=== PATIENT | female | born 1980 | race American Indian/Alaskan Native ===

== ENCOUNTER 2022-02-14 13:04 | Inpatient (IN) | payer SELFPAY ==
[2022-02-14] MEDS ORDERED: SODIUM CHLORIDE 0.9% 1000 ML 1,000 ML IV ONE (14:31)
[2022-02-14 15:04] LABS: Basophils # (Auto) 0.1 K/mm3 (0.0-0.1); Basophils % (Auto) 1.1 % (0.0-1.8); Eosinophils % (Auto) 0.7 % (0.0-4.3); Hematocrit 36.5 % (30.3-42.9); Hemoglobin 12.2 gm/dl (10.1-14.3); Lymphocytes # (Auto) 0.8 K/mm3 (1.2-5.4); Lymphocytes % (Auto) 15.2 % (13.4-35.0); Mean Corpuscular HGB Conc 34 % (30-34); Mean Corpuscular Volume 78 fl (79-97); Monocytes # (Auto) 0.6 K/mm3 (0.0-0.8); Monocytes % (Auto) 12.3 % (0.0-7.3); Platelet Count 596 K/mm3 (140-440); Red Blood Count 4.65 M/mm3 (3.65-5.03); Red Cell Distribution Width 13.5 % (13.2-15.2)
[2022-02-14 15:23] LABS: Alanine Aminotransferase 17 units/L (7-56); Albumin 4.1 g/dL (3.9-5); Blood Urea Nitrogen 5 mg/dL (7-17); Calcium 9.1 mg/dL (8.4-10.2); Hemolysis Index 13
--- NOTE | 2022-02-14 15:31 | Emergency Department Report ---
HPI - General Chief Complaint: Overdose Time Seen by Provider: 02/14/22 15:13 - HPI HPI: Room 7 The patient is a 41-year-old female present with chief complaint of suicidal ideation/intentional overdose. The patient states sometime last night after 23 00 hrs. she intentionally overdosed on approximately 20 Tylenol PM (500 mg each) and approximately 10 lisinopril 20 mg. Patient denies any other ingestions. When asked how long she is felt suicidal patient replies "I do not know." Patient denies any other attempts at harming herself ED Past Medical Hx - Past Medical History Hx Hypertension: Yes Additional medical history: Polycystic ovarian syndrome, Burrell's palsy - Surgical History Additional Surgical History: x2, ovarian tumor removal (benign), bladder tumor removal (benign), breast biopsy (benign), bilateral tubal ligation - Family History Family history: no significant - Social History Smoking Status: Never Smoker Substance Use Type: None (Denies illicit drug use) ED Review of Systems ROS: Stated complaint: SUICIDE ATTEMPT Other details as noted in HPI Constitutional: no symptoms reported Eyes: denies: eye pain ENT: denies: throat pain Respiratory: no symptoms reported Cardiovascular: denies: chest pain Endocrine: no symptoms reported Gastrointestinal: denies: abdominal pain Musculoskeletal: denies: back pain Neurological: denies: headache Physical Exam - Physical Exam Vital Signs: Vital Signs 02/14/22 02/14/22 02/14/22 13:08 13:34 13:46 Temperature 98.6 F Pulse Rate 119 H 100 H 107 H Respiratory 14 21 23 Rate Blood Pressure Blood Pressure 136/103 [Left] O2 Sat by Pulse 99 97 98 Oximetry 02/14/22 02/14/22 02/14/22 13:59 14:00 14:16 Temperature 98.2 F Pulse Rate 100 H 130 H Respiratory 24 25 H 21 Rate Blood Pressure 182/106 Blood Pressure 167/102 [Left] O2 Sat by Pulse 99 99 99 Oximetry 02/14/22 02/14/22 02/14/22 14:30 14:46 15:00 Temperature Pulse Rate 129 H Respiratory 22 25 H 26 H Rate Blood Pressure 186/115 177/107 173/103 Blood Pressure 173/103 [Left] O2 Sat by Pulse 99 99 99 Oximetry Physical Exam: GENERAL: The patient is well-developed well-nourished female lying on stretcher not appearing to be in acute distress. [] HEENT: Normocephalic. Atraumatic. Extraocular motions are intact. Patient has moist mucous membranes. NECK: Supple. Trachea midline CHEST/LUNGS: Clear to auscultation. There is no respiratory distress noted. HEART/CARDIOVASCULAR: Regular. There is tachycardia. There is no gallop rub or murmur. ABDOMEN: Abdomen is soft, nontender. Patient has normal bowel sounds. There is no abdominal distention. SKIN: There is no rash. There is no edema. There is no diaphoresis. NEURO: The patient is awake, alert, and oriented. The patient is cooperative. The patient has no focal neurologic deficits. The patient has normal speech. GCS 15 MUSCULOSKELETAL: There is no evidence of acute injury. ED Course Vital Signs 02/14/22 02/14/22 02/14/22 13:08 13:34 13:46 Temperature 98.6 F Pulse Rate 119 H 100 H 107 H Respiratory 14 21 23 Rate Blood Pressure Blood Pressure 136/103 [Left] O2 Sat by Pulse 99 97 98 Oximetry 02/14/22 02/14/22 02/14/22 13:59 14:00 14:16 Temperature 98.2 F Pulse Rate 100 H 130 H Respiratory 24 25 H 21 Rate Blood Pressure 182/106 Blood Pressure 167/102 [Left] O2 Sat by Pulse 99 99 99 Oximetry 02/14/22 02/14/22 02/14/22 14:30 14:46 15:00 Temperature Pulse Rate 129 H Respiratory 22 25 H 26 H Rate Blood Pressure 186/115 177/107 173/103 Blood Pressure 173/103 [Left] O2 Sat by Pulse 99 99 99 Oximetry - Consultations Consultation #1: 02/14/22 15:31 Poison control called 02/14/22 15:36 Case discussed with Itzel-she was given updated vitals history and lab results. She states she will discussed with the assistant corporate controller and call back. 02/14/22 16:08 Case discussed with poison control-given uncertain time of ingestion assistant corporate controller recommends initiating therapy with Acetadote. Pharmacist was notified to prepare Acetadote protocol. ED Medical Decision Making - Lab Data Result diagrams: 02/14/22 14:51 02/14/22 14:51 Laboratory Tests 02/14/22 02/14/22 02/14/22 14:51 14:51 14:51 WBC 5.0 RBC 4.65 Hgb 12.2 Hct 36.5 MCV 78 L MCH 26 L MCHC 34 RDW 13.5 Plt Count 596 H Lymph % (Auto) 15.2 [place] % (Auto) 12.3 H Eos % (Auto) 0.7 Baso % (Auto) 1.1 Lymph # (Auto) 0.8 L [place] # (Auto) 0.6 Eos # (Auto) 0.0 Baso # (Auto) 0.1 Seg Neutrophils % 70.7 H Seg Neutrophils # 3.6 Sodium 139 Potassium 3.8 Chloride 104.2 Carbon Dioxide 23 Anion Gap 16 BUN 5 L Creatinine 0.6 Estimated GFR > 60 BUN/Creatinine Ratio 8 Glucose 143 H Calcium 9.1 Total Bilirubin 0.80 AST 13 ALT 17 Alkaline Phosphatase 56 Total Protein 7.3 Albumin 4.1 Albumin/Globulin Ratio 1.3 HCG, Qual Urine Color Urine Turbidity Specific [place] (Man) Ur Protein (Man) Ur Ketones (Man) Urine Bilirubin (Man) Urine WBC (Auto) Urine RBC (Auto) U Epithel Cells (Auto) Urine RBC (Manual) Urine Mucus Salicylates < 0.3 L Urine Opiates Screen Urine Methadone Screen Acetaminophen Ur Barbiturates Screen Ur Phencyclidine Scrn Ur Amphetamines Screen U Benzodiazepines Scrn Urine Cocaine Screen U Marijuana (THC) Screen Drugs of Abuse Note Plasma/Serum Alcohol 02/14/22 02/14/22 02/14/22 14:51 14:51 14:51 WBC RBC Hgb Hct MCV MCH MCHC RDW Plt Count Lymph % (Auto) [place] % (Auto) Eos % (Auto) Baso % (Auto) Lymph # (Auto) [place] # (Auto) Eos # (Auto) Baso # (Auto) Seg Neutrophils % Seg Neutrophils # Sodium Potassium Chloride Carbon Dioxide Anion Gap BUN Creatinine Estimated GFR BUN/Creatinine Ratio Glucose Calcium Total Bilirubin AST ALT Alkaline Phosphatase Total Protein Albumin Albumin/Globulin Ratio HCG, Qual Negative Urine Color Urine Turbidity Specific [place] (Man) Ur Protein (Man) Ur Ketones (Man) Urine Bilirubin (Man) Urine WBC (Auto) Urine RBC (Auto) U Epithel Cells (Auto) Urine RBC (Manual) Urine Mucus Salicylates Urine Opiates Screen Urine Methadone Screen Acetaminophen 11.2 Ur Barbiturates Screen Ur Phencyclidine Scrn Ur Amphetamines Screen U Benzodiazepines Scrn Urine Cocaine Screen U Marijuana (THC) Screen Drugs of Abuse Note Plasma/Serum Alcohol < 0.01 02/14/22 02/14/22 15:11 15:11 WBC RBC Hgb Hct MCV MCH MCHC RDW Plt Count Lymph % (Auto) [place] % (Auto) Eos % (Auto) Baso % (Auto) Lymph # (Auto) [place] # (Auto) Eos # (Auto) Baso # (Auto) Seg Neutrophils % Seg Neutrophils # Sodium Potassium Chloride Carbon Dioxide Anion Gap BUN Creatinine Estimated GFR BUN/Creatinine Ratio Glucose Calcium Total Bilirubin AST ALT Alkaline Phosphatase Total Protein Albumin Albumin/Globulin Ratio HCG, Qual Urine Color Straw Urine Turbidity Clear Specific [place] (Man) 1.015 Ur Protein (Man) 1+ Ur Ketones (Man) Negative Urine Bilirubin (Man) Negative Urine WBC (Auto) 1.0 Urine RBC (Auto) 1.0 U Epithel Cells (Auto) 1.0 Urine RBC (Manual) Negative Urine Mucus Few Salicylates Urine Opiates Screen Negative Urine Methadone Screen Negative Acetaminophen Ur Barbiturates Screen Negative Ur Phencyclidine Scrn Negative Ur Amphetamines Screen Negative U Benzodiazepines Scrn Negative Urine Cocaine Screen Negative U Marijuana (THC) Screen Negative Drugs of Abuse Note Disclamer Plasma/Serum Alcohol - Differential Diagnosis Acetaminophen overdose, anticholinergic syndrome Critical care attestation.: If time is entered above; I have spent that time in minutes in the direct care of this critically ill patient, excluding procedure time. ED Disposition Clinical Impression: Suicidal ideation, Intentional drug overdose, Acetaminophen overdose Disposition: ADMITTED INPATIENT Is pt being admited?: Yes Does the pt Need Aspirin: No Condition: Fair Time of Disposition: 16:08 (Care transferred to hospitalist (Dr. Forrest))
[2022-02-14 15:32] LABS: BUN/Creatinine Ratio 8
[2022-02-14 15:35] LABS: Mucus,Urine FEW /HPF
[2022-02-14 15:43] LABS: Amphetamine Screen,Urine Negative; Benzodiazepines Screen,Urine Negative; Cannabinoid Screen,Urine Negative; Cocaine Screen,Urine Negative; Methadone Screen,Urine Negative; Opiate Screen,Urine Negative
[2022-02-14 15:44] LABS: Color,Urine Straw (Yellow)
[2022-02-14] MEDS ORDERED: MORPHINE 2 MG/1 ML INJ IV PRN (16:10)
[2022-02-14] MEDS ORDERED: ONDANSETRON 4 MG/2 ML INJ IV PRN ×2 (16:10→21:12)
[2022-02-14 16:22] LABS: INR 1.07 (0.87-1.13); Partial Thromboplastin Time 28.9 Sec. (24.2-36.6)
[2022-02-14] MEDS ORDERED: ACETADOTE IV ONE ×3 (17:00→21:30)
[2022-02-14] MEDS ORDERED: DEXTROSE 5% IV ONE ×3 (17:00→21:30)
[2022-02-14] MEDS ORDERED: WATER IV ONE ×3 (17:00→21:30)
[2022-02-14] MEDS ORDERED: METOCLOPRAMIDE 10 MG/2 ML INJ IV PRN (21:12)
[2022-02-14] MEDS ORDERED: oxyCODONE /ACETAMINOPHEN 5-325MG TAB PO PRN (21:12)
[2022-02-14] MEDS ORDERED: ACETAMINOPHEN 325 MG TAB PO PRN (21:12)
[2022-02-14] MEDS: FAMOTIDINE 20 MG/2 ML INJ IV SCH (23:53)
[2022-02-15] MEDS: IBUPROFEN 600 MG TAB PO PRN ×2 (00:54→13:19)
[2022-02-15 05:22] LABS: Basophils # (Auto) 0.1 K/mm3 (0.0-0.1); Basophils % (Auto) 0.8 % (0.0-1.8); Eosinophils # (Auto) 0.2 K/mm3 (0.0-0.4); Hematocrit 33.3 % (30.3-42.9); Hemoglobin 11.2 gm/dl (10.1-14.3); Lymphocytes # (Auto) 1.1 K/mm3 (1.2-5.4); Mean Corpuscular HGB Conc 34 % (30-34); Mean Corpuscular Volume 78 fl (79-97); Monocytes # (Auto) 0.7 K/mm3 (0.0-0.8); Monocytes % (Auto) 10.3 % (0.0-7.3); Platelet Count 533 K/mm3 (140-440); Red Blood Count 4.26 M/mm3 (3.65-5.03); Red Cell Distribution Width 13.7 % (13.2-15.2)
[2022-02-15 05:39] LABS: Alanine Aminotransferase 15 units/L (7-56); Albumin 3.7 g/dL (3.9-5); Blood Urea Nitrogen 5 mg/dL (7-17); Calcium 8.7 mg/dL (8.4-10.2); Hemolysis Index 14
[2022-02-15 05:41] LABS: BUN/Creatinine Ratio 10
--- NOTE | 2022-02-15 07:05 | History and Physical Report ---
History of Present Illness Date of examination: 02/14/22 Date of admission: 02/14/22 16:10 Chief complaint: Tylenol added lisinopril low-dose last night History of present illness: The patient is a 41-year-old female present with chief complaint of suicidal ideation/intentional overdose. The patient states sometime last night after 2300 hrs. she intentionally overdosed on approximately 20 Tylenol PM (500 mg each) and approximately 10 lisinopril 20 mg. Patient denies any other ingestions. When asked how long she is felt suicidal patient replies "I do not know." Patient denies any other attempts at harming herself - Past Medical History --Hypertension: Yes --Additional medical history: Polycystic ovarian syndrome, Burrell's palsy - Surgical History --Additional Surgical History: x2, ovarian tumor removal (benign), bladder tumor removal (benign), breast biopsy (benign), bilateral tubal ligation - Family History --Htn - Social History --Smoking Status: Never Smoker --Substance Use Type: None (Denies illicit drug use) Review of Systems ROS: Stated complaint: SUICIDE ATTEMPT Other details as noted in HPI Constitutional: no symptoms reported Eyes: denies: eye pain ENT: denies: throat pain Respiratory: no symptoms reported Cardiovascular: denies: chest pain Endocrine: no symptoms reported Gastrointestinal: denies: abdominal pain Musculoskeletal: denies: back pain Neurological: denies: headache Medications and Allergies Allergies Allergy/AdvReac Type Severity Reaction Status Date / Time Latex, Natural Rubber Allergy Rash Verified 02/14/22 13:59 Active Meds: Active Medications Famotidine (Famotidine 20 Mg/2 Ml Inj) 20 mg IV BID KATE Last Admin: 02/14/22 23:53 Dose: 20 mg Acetylcysteine 8,390 mg/ (Dextrose) 1,041.95 mls @ 62.5 mls/hr IV ONCE ONE Stop: 02/15/22 14:10 Last Admin: 02/15/22 00:54 Dose: 62.5 mls/hr Dextrose/Sodium Chloride (D5ns) 1,000 mls @ 125 mls/hr IV DIRECT KATE Ibuprofen (Ibuprofen 600 Mg Tab) 600 mg PO Q6H PRN PRN Reason: Pain, Mild (1-3) Last Admin: 02/15/22 00:54 Dose: 600 mg Metoclopramide HCl (Metoclopramide 10 Mg/2 Ml Inj) 10 mg IV Q6H PRN PRN Reason: Nausea And Vomiting Morphine Sulfate (Morphine 2 Mg/1 Ml Inj) 2 mg IV Q4H PRN PRN Reason: Pain, Moderate (4-6) Ondansetron HCl (Ondansetron 4 Mg/2 Ml Inj) 4 mg IV Q8H PRN PRN Reason: Nausea And Vomiting Oxycodone/Acetaminophen (Oxycodone /Acetaminophen 5-325mg Tab) 1 tab PO Q6H PRN PRN Reason: Pain, Moderate (4-6) Sodium Chloride (Sodium Chloride 0.9% 10 Ml Flush Syringe) 10 ml IV BID KATE Last Admin: 02/14/22 23:26 Dose: 10 ml Sodium Chloride (Sodium Chloride 0.9% 10 Ml Flush Syringe) 10 ml IV PRN PRN PRN Reason: LINE FLUSH Last Admin: 02/15/22 00:54 Dose: 10 ml Exam - Constitutional Vitals: Temp Pulse Resp BP Pulse Ox 98.2 F 80 20 138/83 98 02/15/22 04:30 02/15/22 04:30 02/15/22 04:30 02/15/22 04:30 02/15/22 04:30 General appearance: Present: no acute distress, well-nourished - EENT Eyes: Present: PERRL ENT: hearing intact, clear oral mucosa - Neck Neck: Present: supple, normal ROM - Respiratory Respiratory effort: normal Respiratory: bilateral: CTA - Cardiovascular Heart rate: 78 Rhythm: regular Heart Sounds: Present: S1 & S2. Absent: rub, click - Extremities Extremities: pulses symmetrical, No edema Peripheral Pulses: within normal limits - Abdominal General gastrointestinal: Present: soft, non-tender, non-distended, normal bowel sounds Female genitourinary: Present: normal - Integumentary Integumentary: Present: clear, warm, dry - Musculoskeletal Musculoskeletal: gait normal, strength equal bilaterally - Psychiatric Psychiatric: appropriate mood/affect, intact judgment & insight - Neurologic Neurologic: CNII-XII intact, moves all extremities Results - Labs CBC & Chem 7: 02/15/22 04:48 02/15/22 04:48 Labs: Laboratory Last Values WBC 6.6 K/mm3 (4.5-11.0) 02/15/22 04:48 RBC 4.26 M/mm3 (3.65-5.03) 02/15/22 04:48 Hgb 11.2 gm/dl (10.1-14.3) 02/15/22 04:48 Hct 33.3 % (30.3-42.9) 02/15/22 04:48 MCV 78 fl (79-97) L 02/15/22 04:48 MCH 26 pg (28-32) L 02/15/22 04:48 MCHC 34 % (30-34) 02/15/22 04:48 RDW 13.7 % (13.2-15.2) 02/15/22 04:48 Plt Count 533 K/mm3 (140-440) H 02/15/22 04:48 Lymph % (Auto) 17.0 % (13.4-35.0) 02/15/22 04:48 [place] % (Auto) 10.3 % (0.0-7.3) H 02/15/22 04:48 Eos % (Auto) 3.0 % (0.0-4.3) 02/15/22 04:48 Baso % (Auto) 0.8 % (0.0-1.8) 02/15/22 04:48 Lymph # (Auto) 1.1 K/mm3 (1.2-5.4) L 02/15/22 04:48 [place] # (Auto) 0.7 K/mm3 (0.0-0.8) 02/15/22 04:48 Eos # (Auto) 0.2 K/mm3 (0.0-0.4) 02/15/22 04:48 Baso # (Auto) 0.1 K/mm3 (0.0-0.1) 02/15/22 04:48 Seg Neutrophils % 68.9 % (40.0-70.0) 02/15/22 04:48 Seg Neutrophils # 4.5 K/mm3 (1.8-7.7) 02/15/22 04:48 PT 15.1 Sec. (12.2-14.9) H 02/14/22 15:52 INR 1.07 (0.87-1.13) 02/14/22 15:52 APTT 28.9 Sec. (24.2-36.6) 02/14/22 15:52 Sodium 138 mmol/L (137-145) 02/15/22 04:48 Potassium 3.6 mmol/L (3.6-5.0) 02/15/22 04:48 Chloride 105.7 mmol/L (98-107) 02/15/22 04:48 Carbon Dioxide 23 mmol/L (22-30) 02/15/22 04:48 Anion Gap 13 mmol/L 02/15/22 04:48 BUN 5 mg/dL (7-17) L 02/15/22 04:48 Creatinine 0.5 mg/dL (0.6-1.2) L 02/15/22 04:48 Estimated GFR > 60 ml/min 02/15/22 04:48 BUN/Creatinine Ratio 10 % 02/15/22 04:48 Glucose 143 mg/dL (65-100) H 02/15/22 04:48 Calcium 8.7 mg/dL (8.4-10.2) 02/15/22 04:48 Total Bilirubin 2.10 mg/dL (0.1-1.2) H 02/15/22 04:48 AST 12 units/L (5-40) 02/15/22 04:48 ALT 15 units/L (7-56) 02/15/22 04:48 Alkaline Phosphatase 48 units/L (35-129) 02/15/22 04:48 Total Protein 6.6 g/dL (6.3-8.2) 02/15/22 04:48 Albumin 3.7 g/dL (3.9-5) L 02/15/22 04:48 Albumin/Globulin Ratio 1.3 % 02/15/22 04:48 HCG, Qual Negative (Negative) 02/14/22 14:51 Urine Color Straw (Yellow) 02/14/22 15:11 Urine Turbidity Clear (Clear) 02/14/22 15:11 Specific [place] (Man) 1.015 (1.003-1.030) 02/14/22 15:11 Ur Protein (Man) 1+ mg/dL (Negative) 02/14/22 15:11 Ur Ketones (Man) Negative (Negative) 02/14/22 15:11 Urine Bilirubin (Man) Negative (Negative) 02/14/22 15:11 Urine WBC (Auto) 1.0 /HPF (0.0-6.0) 02/14/22 15:11 Urine RBC (Auto) 1.0 /HPF (0.0-6.0) 02/14/22 15:11 U Epithel Cells (Auto) 1.0 /HPF (0-13.0) 02/14/22 15:11 Urine RBC (Manual) Negative (Negative) 02/14/22 15:11 Urine Mucus Few /HPF 02/14/22 15:11 Salicylates < 0.3 mg/dL (2.8-20.0) L 02/14/22 14:51 Urine Opiates Screen Negative 02/14/22 15:11 Urine Methadone Screen Negative 02/14/22 15:11 Acetaminophen 11.2 ug/mL (10.0-30.0) 02/14/22 14:51 Ur Barbiturates Screen Negative 02/14/22 15:11 Ur Phencyclidine Scrn Negative 02/14/22 15:11 Ur Amphetamines Screen Negative 02/14/22 15:11 U Benzodiazepines Scrn Negative 02/14/22 15:11 Urine Cocaine Screen Negative 02/14/22 15:11 U Marijuana (THC) Screen Negative 02/14/22 15:11 Drugs of Abuse Note Disclamer 02/14/22 15:11 Plasma/Serum Alcohol < 0.01 % (0-0.07) 02/14/22 14:51 Short CBC 02/14/22 02/15/22 Range/Units 14:51 04:48 WBC 5.0 6.6 (4.5-11.0) K/mm3 Hgb 12.2 11.2 (10.1-14.3) gm/dl Hct 36.5 33.3 (30.3-42.9) % Plt Count 596 H 533 H (140-440) K/mm3 BMP 02/14/22 02/15/22 14:51 04:48 Sodium 139 138 Potassium 3.8 3.6 Chloride 104.2 105.7 Carbon Dioxide 23 23 BUN 5 L 5 L Creatinine 0.6 0.5 L Glucose 143 H 143 H Calcium 9.1 8.7 Liver Function 02/14/22 02/15/22 Range/Units 14:51 04:48 Total Bilirubin 0.80 2.10 H (0.1-1.2) mg/dL AST 13 12 (5-40) units/L ALT 17 15 (7-56) units/L Alkaline Phosphatase 56 48 (35-129) units/L Albumin 4.1 3.7 L (3.9-5) g/dL Urine 02/14/22 Range/Units 15:11 Urine Color Straw (Yellow) Assessment and Plan Advance Directives: Yes (Full code) VTE prophylaxis?: Chemical Plan of care discussed with patient/family: Yes - Patient Problems (1) Acetaminophen overdose Current Visit: Yes Status: Acute Qualifiers: Encounter type: initial encounter Plan to address problem: Patient is depressed and has suicidal intentions Intentional overdose on Acetaminophen and lisinopril. N- Acetylcysteine protocol started -Poison control was contacted by ER physician LFTs are normal No hepatic injury at this point IV fluids consult mental health consult (2) Intentional drug overdose Current Visit: Yes Status: Acute Qualifiers: Encounter type: initial encounter Qualified Code(s): T50.902A - Poisoning by unspecified drugs, medicaments and biological substances, intentional self- harm, initial encounter Plan to address problem: IV fluids and N-acetylcysteine antidote as per protocol . Pharmacy informed (3) Suicidal ideation Current Visit: Yes Status: Acute Plan to address problem: Mental health and psych consult (4) DVT prophylaxis Current Visit: Yes Status: Acute Plan to address problem: On heparin and GI prophylaxis (5) Advance care planning Current Visit: Yes Status: Acute Plan to address problem: Disease education conducted care plan discussed diagnosis discussed and prognosis discussed. Patient acknowledged understanding with care plan. +30 minutes.
[2022-02-15] MEDS: FAMOTIDINE 20 MG/2 ML INJ IV SCH ×2 (09:46→21:17)
[2022-02-15] MEDS: hydrALAZINE 10 MG TAB PO SCH ×2 (14:28→21:17)
--- NOTE | 2022-02-15 21:17 | Progress Note ---
Assessment and Plan Assessment and plan: Advance Directives: Yes (Full code) VTE prophylaxis?: Chemical Plan of care discussed with patient/family: Yes - Patient Problems --Acetaminophen overdose Patient is depressed and has suicidal intentions Intentional overdose on Acetaminophen and lisinopril. N- Acetylcysteine protocol started -Poison control was contacted by ER physician LFTs are normal No hepatic injury at this point IV fluids consult mental health consult --Intentional drug overdose IV fluids and N-acetylcysteine antidote as per protocol . Pharmacy informed 1013 status --Suicidal attempt Mental health and psych consult --Severe depression; Management per psych/pending evaluation --1013 status/suicidal watch Follow psych eval and recommendations --DVT prophylaxis On heparin and GI prophylaxis --Advance care planning Disease education conducted care plan discussed diagnosis discussed and prognosis discussed. Patient acknowledged understanding with care plan. +30 minutes. 02/15/2022; patient's Tylenol levels within range Patient received 2 doses of N-acetylcysteine Today the level is 11.2[range 10.0-30.0] Patient is 1013 status Pending psych evaluation Closely monitor the patient and adjust the management as needed History Interval history: I have seen and examined the patient at the bedside Patient's chart and medications reviewed Patient was emotional and teary Reports that she was overwhelmed with some issues Alert awake oriented x3 Mild distress Hospitalist Physical - Constitutional Vitals: Temp Pulse Resp BP Pulse Ox 99.4 F 95 H 16 156/89 97 02/15/22 17:52 02/15/22 17:52 02/15/22 17:52 02/15/22 17:52 02/15/22 17:52 General appearance: Present: mild distress, well-nourished, other (Patient is sad and teary) - EENT Eyes: Present: PERRL, EOM intact - Neck Neck: Present: supple, normal ROM - Respiratory Respiratory effort: normal Respiratory: bilateral: diminished, negative: rales, rhonchi, wheezing - Cardiovascular Rhythm: regular Heart Sounds: Present: S1 & S2 - Extremities Extremities: no ischemia, No edema - Abdominal General gastrointestinal: soft, non-tender, non-distended, normal bowel sounds - Integumentary Integumentary: Present: clear, warm - Psychiatric Psychiatric: appropriate mood/affect, cooperative - Neurologic Neurologic: moves all extremities Results - Labs CBC & Chem 7: 02/15/22 04:48 02/15/22 04:48 Labs: Laboratory Last Values WBC 6.6 K/mm3 (4.5-11.0) 02/15/22 04:48 RBC 4.26 M/mm3 (3.65-5.03) 02/15/22 04:48 Hgb 11.2 gm/dl (10.1-14.3) 02/15/22 04:48 Hct 33.3 % (30.3-42.9) 02/15/22 04:48 MCV 78 fl (79-97) L 02/15/22 04:48 MCH 26 pg (28-32) L 02/15/22 04:48 MCHC 34 % (30-34) 02/15/22 04:48 RDW 13.7 % (13.2-15.2) 02/15/22 04:48 Plt Count 533 K/mm3 (140-440) H 02/15/22 04:48 Lymph % (Auto) 17.0 % (13.4-35.0) 02/15/22 04:48 [place] % (Auto) 10.3 % (0.0-7.3) H 02/15/22 04:48 Eos % (Auto) 3.0 % (0.0-4.3) 02/15/22 04:48 Baso % (Auto) 0.8 % (0.0-1.8) 02/15/22 04:48 Lymph # (Auto) 1.1 K/mm3 (1.2-5.4) L 02/15/22 04:48 [place] # (Auto) 0.7 K/mm3 (0.0-0.8) 02/15/22 04:48 Eos # (Auto) 0.2 K/mm3 (0.0-0.4) 02/15/22 04:48 Baso # (Auto) 0.1 K/mm3 (0.0-0.1) 02/15/22 04:48 Seg Neutrophils % 68.9 % (40.0-70.0) 02/15/22 04:48 Seg Neutrophils # 4.5 K/mm3 (1.8-7.7) 02/15/22 04:48 PT 15.1 Sec. (12.2-14.9) H 02/14/22 15:52 INR 1.07 (0.87-1.13) 02/14/22 15:52 APTT 28.9 Sec. (24.2-36.6) 02/14/22 15:52 Sodium 138 mmol/L (137-145) 02/15/22 04:48 Potassium 3.6 mmol/L (3.6-5.0) 02/15/22 04:48 Chloride 105.7 mmol/L (98-107) 02/15/22 04:48 Carbon Dioxide 23 mmol/L (22-30) 02/15/22 04:48 Anion Gap 13 mmol/L 02/15/22 04:48 BUN 5 mg/dL (7-17) L 02/15/22 04:48 Creatinine 0.5 mg/dL (0.6-1.2) L 02/15/22 04:48 Estimated GFR > 60 ml/min 02/15/22 04:48 BUN/Creatinine Ratio 10 % 02/15/22 04:48 Glucose 143 mg/dL (65-100) H 02/15/22 04:48 Calcium 8.7 mg/dL (8.4-10.2) 02/15/22 04:48 Total Bilirubin 2.10 mg/dL (0.1-1.2) H 02/15/22 04:48 AST 12 units/L (5-40) 02/15/22 04:48 ALT 15 units/L (7-56) 02/15/22 04:48 Alkaline Phosphatase 48 units/L (35-129) 02/15/22 04:48 Total Protein 6.6 g/dL (6.3-8.2) 02/15/22 04:48 Albumin 3.7 g/dL (3.9-5) L 02/15/22 04:48 Albumin/Globulin Ratio 1.3 % 02/15/22 04:48 HCG, Qual Negative (Negative) 02/14/22 14:51 Urine Color Straw (Yellow) 02/14/22 15:11 Urine Turbidity Clear (Clear) 02/14/22 15:11 Specific [place] (Man) 1.015 (1.003-1.030) 02/14/22 15:11 Ur Protein (Man) 1+ mg/dL (Negative) 02/14/22 15:11 Ur Ketones (Man) Negative (Negative) 02/14/22 15:11 Urine Bilirubin (Man) Negative (Negative) 02/14/22 15:11 Urine WBC (Auto) 1.0 /HPF (0.0-6.0) 02/14/22 15:11 Urine RBC (Auto) 1.0 /HPF (0.0-6.0) 02/14/22 15:11 U Epithel Cells (Auto) 1.0 /HPF (0-13.0) 02/14/22 15:11 Urine RBC (Manual) Negative (Negative) 02/14/22 15:11 Urine Mucus Few /HPF 02/14/22 15:11 Salicylates < 0.3 mg/dL (2.8-20.0) L 02/14/22 14:51 Urine Opiates Screen Negative 02/14/22 15:11 Urine Methadone Screen Negative 02/14/22 15:11 Acetaminophen 11.2 ug/mL (10.0-30.0) 02/14/22 14:51 Ur Barbiturates Screen Negative 02/14/22 15:11 Ur Phencyclidine Scrn Negative 02/14/22 15:11 Ur Amphetamines Screen Negative 02/14/22 15:11 U Benzodiazepines Scrn Negative 02/14/22 15:11 Urine Cocaine Screen Negative 02/14/22 15:11 U Marijuana (THC) Screen Negative 02/14/22 15:11 Drugs of Abuse Note Disclamer 02/14/22 15:11 Plasma/Serum Alcohol < 0.01 % (0-0.07) 02/14/22 14:51 Flower/IV: Voiding Method Toilet Active Medications - Current Medications Current Medications: Generic Name Dose Route Start Last Admin Trade Name Freq PRN Reason Stop Dose Admin Famotidine 20 mg 02/14/22 22:00 02/15/22 09:46 Famotidine 20 Mg/2 Ml Inj IV 20 mg BID KATE Administration Hydralazine HCl 10 mg 02/15/22 14:00 02/15/22 14:28 Hydralazine 10 Mg Tab PO 10 mg Q8HR KATE Administration Dextrose/Sodium Chloride 1,000 mls @ 125 mls/hr 02/14/22 22:00 D5ns IV DIRECT KATE Ibuprofen 600 mg 02/14/22 16:10 02/15/22 13:19 Ibuprofen 600 Mg Tab PO 600 mg Q6H PRN Administration Pain, Mild (1-3) Metoclopramide HCl 10 mg 02/14/22 21:12 Metoclopramide 10 Mg/2 Ml Inj IV Q6H PRN Nausea And Vomiting Morphine Sulfate 2 mg 02/14/22 16:10 Morphine 2 Mg/1 Ml Inj IV Q4H PRN Pain, Moderate (4-6) Ondansetron HCl 4 mg 02/14/22 16:10 Ondansetron 4 Mg/2 Ml Inj IV Q8H PRN Nausea And Vomiting Sodium Chloride 10 ml 02/14/22 22:00 02/15/22 09:46 Sodium Chloride 0.9% 10 Ml Flush Syringe IV 10 ml BID KATE Administration Sodium Chloride 10 ml 02/14/22 16:10 02/15/22 00:54 Sodium Chloride 0.9% 10 Ml Flush Syringe IV 10 ml PRN PRN Administration LINE FLUSH
[2022-02-16 00:10] LABS: Alanine Aminotransferase 15 units/L (7-56)
[2022-02-16] MEDS: D5W/0.9% NACL 1,000 ML IV SCH ×2 (05:58→14:04)
[2022-02-16] MEDS: IBUPROFEN 600 MG TAB PO PRN (06:06)
[2022-02-16] MEDS: hydrALAZINE 10 MG TAB PO SCH (06:07)
--- NOTE | 2022-02-16 08:11 | Progress Note ---
Assessment and Plan Assessment and plan: Assessment and plan: Advance Directives: Yes (Full code) VTE prophylaxis?: Chemical Plan of care discussed with patient/family: Yes - Patient Problems --Acetaminophen overdose Acetaminophen levels are within range at 11.0 Check level today Patient is depressed and has suicidal intentions Intentional overdose on Acetaminophen and lisinopril. N- Acetylcysteine protocol started -Poison control was contacted by ER physician LFTs are normal No hepatic injury at this point IV fluids consult mental health consult --Intentional drug overdose IV fluids and N-acetylcysteine antidote as per protocol . Pharmacy informed 1013 status --Suicidal attempt Mental health and psych consult --Severe depression; Management per psych/pending evaluation --Low-grade fever; T-max 100 F No evidence of infectious process, WBC normal range Urine analysis negative for UTI Closely monitor --Sinus tachycardia on admission; Improved heart rate today heart rate 95-114 Probably due to low-grade fever, stress related Closely monitor/EKG sinus tachycardia --Hypertension; Metoprolol 12.5 mg p.o. twice daily Hydralazine IV as needed for blood pressure more than 150/90 --1013 status/suicidal watch Follow psych eval and recommendations --DVT prophylaxis On heparin and GI prophylaxis --Advance care planning Disease education conducted care plan discussed diagnosis discussed and prognosis discussed. Patient acknowledged understanding with care plan. +30 minutes. 02/15/2022; patient's Tylenol levels within range Patient received 2 doses of N-acetylcysteine Tylenol level is 11.2[range 10.0-30.0] Patient is 1013 status Pending psych evaluation Closely monitor the patient and adjust the management as needed 02/16; discussed with psych nurse practitioner Pending evaluation, check Tylenol levels, LFTs History Interval history: I have seen and examined the patient at the bedside patient's chart and medications reviewed Patient is feeling better cheerful and smiling Denies any suicidal thoughts or ideation Vital signs noted cyanide pot hardener in the room Hospitalist Physical - Constitutional Vitals: Temp Pulse Resp BP Pulse Ox 100.0 F H 104 H 20 153/78 98 02/16/22 05:41 02/16/22 06:07 02/16/22 05:41 02/16/22 06:07 02/16/22 05:41 General appearance: Present: mild distress, well-nourished, other (Patient is sad and teary) - EENT Eyes: Present: PERRL, EOM intact - Neck Neck: Present: supple, normal ROM - Respiratory Respiratory effort: normal Respiratory: bilateral: diminished, negative: rales, rhonchi, wheezing - Cardiovascular Rhythm: regular Heart Sounds: Present: S1 & S2 - Extremities Extremities: no ischemia, No edema - Abdominal General gastrointestinal: soft, non-tender, non-distended, normal bowel sounds - Integumentary Integumentary: Present: clear, warm - Psychiatric Psychiatric: appropriate mood/affect, cooperative - Neurologic Neurologic: moves all extremities Results - Labs CBC & Chem 7: 02/15/22 04:48 02/16/22 09:40 Labs: Laboratory Last Values WBC 6.6 K/mm3 (4.5-11.0) 02/15/22 04:48 RBC 4.26 M/mm3 (3.65-5.03) 02/15/22 04:48 Hgb 11.2 gm/dl (10.1-14.3) 02/15/22 04:48 Hct 33.3 % (30.3-42.9) 02/15/22 04:48 MCV 78 fl (79-97) L 02/15/22 04:48 MCH 26 pg (28-32) L 02/15/22 04:48 MCHC 34 % (30-34) 02/15/22 04:48 RDW 13.7 % (13.2-15.2) 02/15/22 04:48 Plt Count 533 K/mm3 (140-440) H 02/15/22 04:48 Lymph % (Auto) 17.0 % (13.4-35.0) 02/15/22 04:48 [place] % (Auto) 10.3 % (0.0-7.3) H 02/15/22 04:48 Eos % (Auto) 3.0 % (0.0-4.3) 02/15/22 04:48 Baso % (Auto) 0.8 % (0.0-1.8) 02/15/22 04:48 Lymph # (Auto) 1.1 K/mm3 (1.2-5.4) L 02/15/22 04:48 [place] # (Auto) 0.7 K/mm3 (0.0-0.8) 02/15/22 04:48 Eos # (Auto) 0.2 K/mm3 (0.0-0.4) 02/15/22 04:48 Baso # (Auto) 0.1 K/mm3 (0.0-0.1) 02/15/22 04:48 Seg Neutrophils % 68.9 % (40.0-70.0) 02/15/22 04:48 Seg Neutrophils # 4.5 K/mm3 (1.8-7.7) 02/15/22 04:48 PT 15.1 Sec. (12.2-14.9) H 02/14/22 15:52 INR 1.07 (0.87-1.13) 02/14/22 15:52 APTT 28.9 Sec. (24.2-36.6) 02/14/22 15:52 Sodium 138 mmol/L (137-145) 02/15/22 04:48 Potassium 3.6 mmol/L (3.6-5.0) 02/15/22 04:48 Chloride 105.7 mmol/L (98-107) 02/15/22 04:48 Carbon Dioxide 23 mmol/L (22-30) 02/15/22 04:48 Anion Gap 13 mmol/L 02/15/22 04:48 BUN 5 mg/dL (7-17) L 02/15/22 04:48 Creatinine 0.5 mg/dL (0.6-1.2) L 02/15/22 04:48 Estimated GFR > 60 ml/min 02/15/22 04:48 BUN/Creatinine Ratio 10 % 02/15/22 04:48 Glucose 143 mg/dL (65-100) H 02/15/22 04:48 Calcium 8.7 mg/dL (8.4-10.2) 02/15/22 04:48 Total Bilirubin 2.10 mg/dL (0.1-1.2) H 02/15/22 04:48 AST 14 units/L (5-40) 02/15/22 23:29 ALT 15 units/L (7-56) 02/15/22 23:29 Alkaline Phosphatase 48 units/L (35-129) 02/15/22 04:48 Total Protein 6.6 g/dL (6.3-8.2) 02/15/22 04:48 Albumin 3.7 g/dL (3.9-5) L 02/15/22 04:48 Albumin/Globulin Ratio 1.3 % 02/15/22 04:48 HCG, Qual Negative (Negative) 02/14/22 14:51 Urine Color Straw (Yellow) 02/14/22 15:11 Urine Turbidity Clear (Clear) 02/14/22 15:11 Specific [place] (Man) 1.015 (1.003-1.030) 02/14/22 15:11 Ur Protein (Man) 1+ mg/dL (Negative) 02/14/22 15:11 Ur Ketones (Man) Negative (Negative) 02/14/22 15:11 Urine Bilirubin (Man) Negative (Negative) 02/14/22 15:11 Urine WBC (Auto) 1.0 /HPF (0.0-6.0) 02/14/22 15:11 Urine RBC (Auto) 1.0 /HPF (0.0-6.0) 02/14/22 15:11 U Epithel Cells (Auto) 1.0 /HPF (0-13.0) 02/14/22 15:11 Urine RBC (Manual) Negative (Negative) 02/14/22 15:11 Urine Mucus Few /HPF 02/14/22 15:11 Salicylates < 0.3 mg/dL (2.8-20.0) L 02/14/22 14:51 Urine Opiates Screen Negative 02/14/22 15:11 Urine Methadone Screen Negative 02/14/22 15:11 Acetaminophen 5.0 ug/mL (10.0-30.0) L 02/15/22 23:29 Ur Barbiturates Screen Negative 02/14/22 15:11 Ur Phencyclidine Scrn Negative 02/14/22 15:11 Ur Amphetamines Screen Negative 02/14/22 15:11 U Benzodiazepines Scrn Negative 02/14/22 15:11 Urine Cocaine Screen Negative 02/14/22 15:11 U Marijuana (THC) Screen Negative 02/14/22 15:11 Drugs of Abuse Note Disclamer 02/14/22 15:11 Plasma/Serum Alcohol < 0.01 % (0-0.07) 02/14/22 14:51 Flower/IV: Voiding Method Toilet Active Medications - Current Medications Current Medications: Generic Name Dose Route Start Last Admin Trade Name Freq PRN Reason Stop Dose Admin Famotidine 20 mg 02/14/22 22:00 02/15/22 21:17 Famotidine 20 Mg/2 Ml Inj IV 20 mg BID KATE Administration Hydralazine HCl 10 mg 02/16/22 07:54 Hydralazine 20 Mg/1 Ml Inj IV Q4HR PRN Hypertension Dextrose/Sodium Chloride 1,000 mls @ 125 mls/hr 02/14/22 22:00 02/16/22 05:58 D5ns IV 125 mls/hr DIRECT KATE Administration Metoclopramide HCl 10 mg 02/14/22 21:12 Metoclopramide 10 Mg/2 Ml Inj IV Q6H PRN Nausea And Vomiting Metoprolol Tartrate 12.5 mg 02/16/22 10:00 Metoprolol Tartrate 25 Mg Tab PO BID KATE Morphine Sulfate 2 mg 02/14/22 16:10 Morphine 2 Mg/1 Ml Inj IV Q4H PRN Pain, Moderate (4-6) Ondansetron HCl 4 mg 02/14/22 16:10 Ondansetron 4 Mg/2 Ml Inj IV Q8H PRN Nausea And Vomiting Sodium Chloride 10 ml 02/14/22 22:00 02/15/22 21:18 Sodium Chloride 0.9% 10 Ml Flush Syringe IV 10 ml BID KATE Administration Sodium Chloride 10 ml 02/14/22 16:10 02/15/22 00:54 Sodium Chloride 0.9% 10 Ml Flush Syringe IV 10 ml PRN PRN Administration LINE FLUSH
[2022-02-16] MEDS: METOPROLOL TARTRATE 25 MG TAB PO SCH ×2 (09:12→21:28)
[2022-02-16] MEDS: FAMOTIDINE 20 MG/2 ML INJ IV SCH ×2 (09:13→21:29)
--- NOTE | 2022-02-16 09:43 | Electrocardiograph Report ---
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
[2022-02-16 10:14] LABS: Alanine Aminotransferase 16 units/L (7-56); Albumin 3.6 g/dL (3.9-5); Blood Urea Nitrogen 10 mg/dL (7-17); Calcium 8.6 mg/dL (8.4-10.2); Hemolysis Index 4
[2022-02-16 10:17] LABS: BUN/Creatinine Ratio 20
--- NOTE | 2022-02-16 13:12 | Consultation ---
History of Present Illness - Reason for Consult Consult date: 02/16/22 Reason for consult: OD - Chief Complaint Chief complaint: Tylenol added lisinopril low-dose last night - History of Present Psychiatric Illness The patient is a 41 year old female with no psychiatric history who was admitted post overdosing on pills. The patient was seen today. She calm, cooperative and pleasant. She reports ongoing depression x couple of months. She reports stressors such as " family, financial and work issues." She reports intentional suicidal attempt. The patient states that she thought through and planned her suicidal attempt; states she asked her 17 and 18 year old children to pack their bags then took them to eat eat dinner afterwhich she drooped them off at their grand mother's, she states she then went to a hotel and took a bottle of Tylenol PM and some Blood pressure pills and was found by the hotel staff. The patient states she is remorseful about the event. She denies any current suicidal/homicidal ideation and denies hallucinations. PAST PSYCHIATRIC HISTORY Diagnoses:Denies Suicide attempts or Self-harm behavior: Denies Prior psychiatric hospitalizations: Denies Substance Abuse history:Denies Previous psychiatric medications tried:Denies Outpatient treatment: Denies PAST MEDICAL HISTORY: None reported Family Psychiatric History: None reported or documented SOCIAL HISTORY Marital Status: Living Arrangements: Lives with daughter Employment Status: [employer] Access to guns/weapons: Denies Education: College History of Abuse: Denies Legal History: None reported REVIEW OF SYSTEMS Constitutional: Negative for weight loss ENT: Negative for stridor Respiratory: Negative for cough or hemoptysis All other systems reviewed and are negative MENTAL STATUS EXAMINATION General Appearance and Behavior: Age appropriate, good hygiene, Cooperation: cooperative Psychomotor Behavior: Psychomotor normal, Mood: Depressed Affect and affective range: congruent with stated mood Thought Process: confused Thought Content: suicidal Speech: normal rate and volume Suicidal Ideation: Yes- No plan Homicidal Ideation: Denies Hallucinations: Denies Delusions: None elicited Impulse Control: Normal Insight and Judgment: Limited Memory: Limited Attention:Attentive Orientation: Aox2 Assessment and Plan (1) Major depressive disorder (2) Treatment Plan 1013 Continue home medications Zoloft 25mg po daily Trazodone 50mg po qhs The patient is to get first dose of meds prior to leaving. Benefits and possible SE were explained to patient. She verbalizes understanding. Risks, benefits and alternatives of medications discussed with the patient, questions answered and consent obtained from patient. PSYCHOTHERAPY: Supportive psychotherapy provided MEDICAL: Per primary team DELIRIUM PRECAUTIONS: Please re-orient patient frequently, keep lights on during the day, and minimize benzodiazepines and opiates as these medications could worsen patient's confusion. 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 FOLLOW-UP: Will follow. Thank you for the consult. Please contact with any questions and/or concerns Case discussed with Dr. Anthony who agrees with current disposition Medications and Allergies Medications and Allergies Allergies Allergy/AdvReac Type Severity Reaction Status Date / Time Latex, Natural Rubber Allergy Rash Verified 02/14/22 13:59 Active Meds: Active Medications Famotidine (Famotidine 20 Mg/2 Ml Inj) 20 mg IV BID [facility] Last Admin: 02/16/22 09:13 Dose: 20 mg Hydralazine HCl (Hydralazine 20 Mg/1 Ml Inj) 10 mg IV Q4HR PRN PRN Reason: Hypertension Dextrose/Sodium Chloride (D5ns) 1,000 mls @ 125 mls/hr IV DIRECT [facility] Last Admin: 02/16/22 05:58 Dose: 125 mls/hr Metoclopramide HCl (Metoclopramide 10 Mg/2 Ml Inj) 10 mg IV Q6H PRN PRN Reason: Nausea And Vomiting Metoprolol Tartrate (Metoprolol Tartrate 25 Mg Tab) 12.5 mg PO BID [facility] Last Admin: 02/16/22 09:12 Dose: 12.5 mg Morphine Sulfate (Morphine 2 Mg/1 Ml Inj) 2 mg IV Q4H PRN PRN Reason: Pain, Moderate (4-6) Ondansetron HCl (Ondansetron 4 Mg/2 Ml Inj) 4 mg IV Q8H PRN PRN Reason: Nausea And Vomiting Sodium Chloride (Sodium Chloride 0.9% 10 Ml Flush Syringe) 10 ml IV BID [facility] Last Admin: 02/16/22 09:13 Dose: 10 ml Sodium Chloride (Sodium Chloride 0.9% 10 Ml Flush Syringe) 10 ml IV PRN PRN PRN Reason: LINE FLUSH Last Admin: 02/15/22 00:54 Dose: 10 ml Mental Status Exam - Vital signs Last Vital Signs Temp 100.0 F H 02/16/22 05:41 Pulse 101 H 02/16/22 09:12 Resp 20 02/16/22 05:41 BP 127/67 02/16/22 09:12 Pulse Ox 96 02/16/22 08:29 Results Result Diagrams: 02/15/22 04:48 02/16/22 09:40 Abnormal lab results 02/15/22 02/16/22 02/16/22 Range/Units 23:29 09:40 09:40 Potassium 3.4 L (3.6-5.0) mmol/L Creatinine 0.5 L (0.6-1.2) mg/dL Glucose 179 H (65-100) mg/dL Total Bilirubin 3.50 H (0.1-1.2) mg/dL Albumin 3.6 L (3.9-5) g/dL Acetaminophen 5.0 L 5.0 L (10.0-30.0) ug/mL All other labs normal.
[2022-02-16] MEDS ORDERED: hydrALAZINE 20 MG/1 ML INJ IV PRN (14:00)
[2022-02-16] MEDS: SERTRALINE 25 MG TAB PO SCH (18:03)
[2022-02-16] MEDS: ACETAMINOPHEN 325 MG TAB PO PRN ×2 (18:03→18:06)
[2022-02-16] MEDS: traZODone 50 MG TAB PO SCH (21:29)
[2022-02-17] MEDS: D5W/0.9% NACL 1,000 ML IV SCH ×2 (01:01→11:58)
--- NOTE | 2022-02-17 09:29 | Progress Note ---
Assessment and Plan Assessment and plan: Advance Directives: Yes (Full code) VTE prophylaxis?: Chemical Plan of care discussed with patient/family: Yes - Patient Problems --Acetaminophen overdose Acetaminophen levels are within range at 11.0 Check level today Patient is depressed and has suicidal intentions Intentional overdose on Acetaminophen and lisinopril. N- Acetylcysteine protocol started -Poison control was contacted by ER physician LFTs are normal No hepatic injury at this point IV fluids consult mental health consult --Intentional drug overdose IV fluids and N-acetylcysteine antidote as per protocol . Pharmacy informed 1013 status --Suicidal attempt Mental health and psych consult --Severe depression; Management per psych/pending evaluation --Low-grade fever; T-max 100 F No evidence of infectious process, WBC normal range Urine analysis negative for UTI Closely monitor --Sinus tachycardia on admission; Improved heart rate today heart rate 95-114 Probably due to low-grade fever, stress related Closely monitor/EKG sinus tachycardia --Hypertension; Metoprolol 12.5 mg p.o. twice daily Hydralazine IV as needed for blood pressure more than 150/90 --1013 status/suicidal watch Follow psych eval and recommendations --DVT prophylaxis On heparin and GI prophylaxis --Advance care planning Disease education conducted care plan discussed diagnosis discussed and prognosis discussed. Patient acknowledged understanding with care plan. +30 minutes. 02/15/2022; patient's Tylenol levels within range Patient received 2 doses of N-acetylcysteine Tylenol level is 11.2[range 10.0-30.0] Patient is 1013 status Pending psych evaluation Closely monitor the patient and adjust the management as needed 02/16; continue current management 02/17/2022; patient is medically cleared for discharge. Disposition per psych team History Interval history: Patient is medically cleared for discharge I have seen and examined the patient at the bedside Patient's chart and medications reviewed No new events reported by the nursing Patient denies suicidal thoughts or ideation Patient is cheerful wants to go home Vital signs noted Hospitalist Physical - Constitutional Vitals: Temp Pulse Resp BP Pulse Ox 98.9 F 94 H 20 139/75 95 02/16/22 21:20 02/16/22 21:28 02/16/22 21:20 02/16/22 21:28 02/16/22 21:20 General appearance: Present: no acute distress, well-nourished - EENT Eyes: Present: PERRL, EOM intact - Neck Neck: Present: supple, normal ROM - Respiratory Respiratory effort: normal Respiratory: bilateral: diminished, negative: rales, rhonchi, wheezing - Cardiovascular Rhythm: regular Heart Sounds: Present: S1 & S2 - Extremities Extremities: no ischemia, No edema - Abdominal General gastrointestinal: soft, non-tender, non-distended, normal bowel sounds - Integumentary Integumentary: Present: clear, warm - Psychiatric Psychiatric: appropriate mood/affect, cooperative - Neurologic Neurologic: moves all extremities Results - Labs CBC & Chem 7: 02/15/22 04:48 02/16/22 09:40 Labs: Laboratory Last Values WBC 6.6 K/mm3 (4.5-11.0) 02/15/22 04:48 RBC 4.26 M/mm3 (3.65-5.03) 02/15/22 04:48 Hgb 11.2 gm/dl (10.1-14.3) 02/15/22 04:48 Hct 33.3 % (30.3-42.9) 02/15/22 04:48 MCV 78 fl (79-97) L 02/15/22 04:48 MCH 26 pg (28-32) L 02/15/22 04:48 MCHC 34 % (30-34) 02/15/22 04:48 RDW 13.7 % (13.2-15.2) 02/15/22 04:48 Plt Count 533 K/mm3 (140-440) H 02/15/22 04:48 Lymph % (Auto) 17.0 % (13.4-35.0) 02/15/22 04:48 [place] % (Auto) 10.3 % (0.0-7.3) H 02/15/22 04:48 Eos % (Auto) 3.0 % (0.0-4.3) 02/15/22 04:48 Baso % (Auto) 0.8 % (0.0-1.8) 02/15/22 04:48 Lymph # (Auto) 1.1 K/mm3 (1.2-5.4) L 02/15/22 04:48 [place] # (Auto) 0.7 K/mm3 (0.0-0.8) 02/15/22 04:48 Eos # (Auto) 0.2 K/mm3 (0.0-0.4) 02/15/22 04:48 Baso # (Auto) 0.1 K/mm3 (0.0-0.1) 02/15/22 04:48 Seg Neutrophils % 68.9 % (40.0-70.0) 02/15/22 04:48 Seg Neutrophils # 4.5 K/mm3 (1.8-7.7) 02/15/22 04:48 PT 15.1 Sec. (12.2-14.9) H 02/14/22 15:52 INR 1.07 (0.87-1.13) 02/14/22 15:52 APTT 28.9 Sec. (24.2-36.6) 02/14/22 15:52 Sodium 140 mmol/L (137-145) 02/16/22 09:40 Potassium 3.4 mmol/L (3.6-5.0) L 02/16/22 09:40 Chloride 106.5 mmol/L (98-107) 02/16/22 09:40 Carbon Dioxide 23 mmol/L (22-30) 02/16/22 09:40 Anion Gap 14 mmol/L 02/16/22 09:40 BUN 10 mg/dL (7-17) 02/16/22 09:40 Creatinine 0.5 mg/dL (0.6-1.2) L 02/16/22 09:40 Estimated GFR > 60 ml/min 02/16/22 09:40 BUN/Creatinine Ratio 20 % 02/16/22 09:40 Glucose 179 mg/dL (65-100) H 02/16/22 09:40 Calcium 8.6 mg/dL (8.4-10.2) 02/16/22 09:40 Total Bilirubin 3.50 mg/dL (0.1-1.2) H 02/16/22 09:40 AST 15 units/L (5-40) 02/16/22 09:40 ALT 16 units/L (7-56) 02/16/22 09:40 Alkaline Phosphatase 49 units/L (35-129) 02/16/22 09:40 Total Protein 6.3 g/dL (6.3-8.2) 02/16/22 09:40 Albumin 3.6 g/dL (3.9-5) L 02/16/22 09:40 Albumin/Globulin Ratio 1.3 % 02/16/22 09:40 HCG, Qual Negative (Negative) 02/14/22 14:51 Urine Color Straw (Yellow) 02/14/22 15:11 Urine Turbidity Clear (Clear) 02/14/22 15:11 Specific [place] (Man) 1.015 (1.003-1.030) 02/14/22 15:11 Ur Protein (Man) 1+ mg/dL (Negative) 02/14/22 15:11 Ur Ketones (Man) Negative (Negative) 02/14/22 15:11 Urine Bilirubin (Man) Negative (Negative) 02/14/22 15:11 Urine WBC (Auto) 1.0 /HPF (0.0-6.0) 02/14/22 15:11 Urine RBC (Auto) 1.0 /HPF (0.0-6.0) 02/14/22 15:11 U Epithel Cells (Auto) 1.0 /HPF (0-13.0) 02/14/22 15:11 Urine RBC (Manual) Negative (Negative) 02/14/22 15:11 Urine Mucus Few /HPF 02/14/22 15:11 Salicylates < 0.3 mg/dL (2.8-20.0) L 02/14/22 14:51 Urine Opiates Screen Negative 02/14/22 15:11 Urine Methadone Screen Negative 02/14/22 15:11 Acetaminophen 5.0 ug/mL (10.0-30.0) L 02/16/22 09:40 Ur Barbiturates Screen Negative 02/14/22 15:11 Ur Phencyclidine Scrn Negative 02/14/22 15:11 Ur Amphetamines Screen Negative 02/14/22 15:11 U Benzodiazepines Scrn Negative 02/14/22 15:11 Urine Cocaine Screen Negative 02/14/22 15:11 U Marijuana (THC) Screen Negative 02/14/22 15:11 Drugs of Abuse Note Disclamer 02/14/22 15:11 Plasma/Serum Alcohol < 0.01 % (0-0.07) 02/14/22 14:51 Flower/IV: Voiding Method Toilet Active Medications - Current Medications Current Medications: Generic Name Dose Route Start Last Admin Trade Name Freq PRN Reason Stop Dose Admin Acetaminophen 650 mg 02/16/22 16:36 02/16/22 18:06 Acetaminophen 325 Mg Tab PO 650 mg Q4H PRN Administration Pain, Mild (1-3) Famotidine 20 mg 02/14/22 22:00 02/16/22 21:29 Famotidine 20 Mg/2 Ml Inj IV 20 mg BID KATE Administration Hydralazine HCl 10 mg 02/16/22 14:00 Hydralazine 20 Mg/1 Ml Inj IV Q4HR PRN Hypertension Dextrose/Sodium Chloride 1,000 mls @ 125 mls/hr 02/14/22 22:00 02/17/22 01:01 D5ns IV 125 mls/hr DIRECT KATE Administration Metoclopramide HCl 10 mg 02/14/22 21:12 Metoclopramide 10 Mg/2 Ml Inj IV Q6H PRN Nausea And Vomiting Metoprolol Tartrate 12.5 mg 02/16/22 10:00 02/16/22 21:28 Metoprolol Tartrate 25 Mg Tab PO 12.5 mg BID KATE Administration Morphine Sulfate 2 mg 02/14/22 16:10 Morphine 2 Mg/1 Ml Inj IV Q4H PRN Pain, Moderate (4-6) Ondansetron HCl 4 mg 02/14/22 16:10 Ondansetron 4 Mg/2 Ml Inj IV Q8H PRN Nausea And Vomiting Sertraline HCl 25 mg 02/16/22 16:00 02/16/22 18:03 Sertraline 25 Mg Tab PO 25 mg QDAY KATE Administration Sodium Chloride 10 ml 02/14/22 22:00 02/16/22 21:31 Sodium Chloride 0.9% 10 Ml Flush Syringe IV 10 ml BID KATE Administration Sodium Chloride 10 ml 02/14/22 16:10 02/15/22 00:54 Sodium Chloride 0.9% 10 Ml Flush Syringe IV 10 ml PRN PRN Administration LINE FLUSH Trazodone HCl 50 mg 02/16/22 22:00 02/16/22 21:29 Trazodone 50 Mg Tab PO 50 mg QHS KATE Administration
[2022-02-17] MEDS: METOPROLOL TARTRATE 25 MG TAB PO SCH ×2 (11:55→22:19)
[2022-02-17] MEDS: SERTRALINE 25 MG TAB PO SCH (11:56)
[2022-02-17] MEDS: FAMOTIDINE 20 MG/2 ML INJ IV SCH (11:57)
--- NOTE | 2022-02-17 13:13 | Progress Note ---
Subjective - Reason for Consult Consult date: 02/17/22 Reason for consult: SI - Chief Complaint Chief complaint: The patient was seen today. She here for a suicidal attempt. She is calm, cooperative and pleasant. She becomes tearful at the end of the visit. The patient says she's trying to deal with the after effects of what she did. She says she has a lot of things going on, "not just one, but several things that caused this." She endorses feeling sad. She denies hallucinations. REVIEW OF SYSTEMS Constitutional: Negative for weight loss ENT: Negative for stridor Respiratory: Negative for cough or hemoptysis All other systems reviewed and are negative MENTAL STATUS EXAMINATION General Appearance and Behavior: Age appropriate, good hygiene, Cooperation: cooperative Psychomotor Behavior: Psychomotor normal, Mood: Depressed Affect and affective range: congruent with stated mood Thought Process: confused Thought Content: suicidal Speech: normal rate and volume Suicidal Ideation: Yes- No plan Homicidal Ideation: Denies Hallucinations: Denies Delusions: None elicited Impulse Control: Normal Insight and Judgment: Limited Memory: Limited Attention:Attentive Orientation: Aox2 Assessment and Plan (1) Major depressive disorder Treatment Plan 1013 Increase Zoloft 50mg po daily Trazodone 50mg po qhs Risks, benefits and alternatives of medications discussed with the patient, questions answered and consent obtained from patient. PSYCHOTHERAPY: Supportive psychotherapy provided MEDICAL: Per primary team DELIRIUM PRECAUTIONS: Please re-orient patient frequently, keep lights on during the day, and minimize benzodiazepines and opiates as these medications could worsen patient's confusion. 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 FOLLOW-UP: Will follow. Thank you for the consult. Please contact with any questions and/or concerns Case discussed with Dr. Anthony who agrees with current disposition Mental Status Exam - Vital signs Last Vital Signs Temp 98.9 F 02/17/22 12:04 Pulse 87 02/17/22 12:22 Resp 16 02/17/22 12:04 BP 159/98 02/17/22 12:22 Pulse Ox 94 02/17/22 12:04
[2022-02-17] MEDS: ACETAMINOPHEN 325 MG TAB PO PRN (17:35)
[2022-02-17] MEDS: traZODone 50 MG TAB PO SCH (22:19)
[2022-02-17] MEDS: FAMOTIDINE 20 MG TAB PO SCH (22:19)
[2022-02-18] MEDS: METOPROLOL TARTRATE 25 MG TAB PO SCH ×2 (10:09→22:17)
[2022-02-18] MEDS: SERTRALINE 50 MG TAB PO SCH (10:09)
[2022-02-18] MEDS: FAMOTIDINE 20 MG TAB PO SCH ×2 (10:09→22:17)
--- NOTE | 2022-02-18 11:33 | Progress Note ---
Subjective - Reason for Consult Consult date: 02/18/22 Reason for consult: suicidal attempt - Chief Complaint Chief complaint: The patient was seen today. She is crying. She says she has a lot to talk about and work through. She here for a suicidal attempt. She is upset, and asks who did I decide that she needed impatient treatment. I told the patient, that because she attempted to end her life. The patient says "but why am I being sent to another clinic and you all can't do therapy here." I informed the patient that she is in a hospital on a medical floor and she is not being sent to a clinic but to a facility that can give her extensive therapy. She says "that's stupid. I didn't know I would go somewhere else when I did what I did. What if I refuse." I inform the patient that she can not refuse and would be transferred to an inpatient psych facility once placement is secured. REVIEW OF SYSTEMS Constitutional: Negative for weight loss ENT: Negative for stridor Respiratory: Negative for cough or hemoptysis All other systems reviewed and are negative MENTAL STATUS EXAMINATION General Appearance and Behavior: Age appropriate, good hygiene, Cooperation: cooperative Psychomotor Behavior: Psychomotor normal, Mood: Depressed Affect and affective range: congruent with stated mood Thought Process: confused Thought Content: suicidal Speech: normal rate and volume Suicidal Ideation: Yes- No plan Homicidal Ideation: Denies Hallucinations: Denies Delusions: None elicited Impulse Control: Normal Insight and Judgment: Limited Memory: Limited Attention:Attentive Orientation: Aox2 Assessment and Plan (1) Major depressive disorder Treatment Plan 1013 Zoloft 50mg po daily Trazodone 50mg po qhs Risks, benefits and alternatives of medications discussed with the patient, questions answered and consent obtained from patient. PSYCHOTHERAPY: Supportive psychotherapy provided MEDICAL: Per primary team DELIRIUM PRECAUTIONS: Please re-orient patient frequently, keep lights on during the day, and minimize benzodiazepines and opiates as these medications could worsen patient's confusion. [employer]: Defer to primary DISPOSITION: Recommend acute inpatient psychiatric hospitalization at this time. FOLLOW-UP: Will follow. Thank you for the consult. Please contact with any questions and/or concerns Case discussed with Dr. Anthony who agrees with current disposition Mental Status Exam - Vital signs Last Vital Signs Temp 98.3 F 02/18/22 00:34 Pulse 89 02/18/22 10:09 Resp 12 02/18/22 00:34 BP 126/59 02/18/22 10:09 Pulse Ox 95 02/18/22 00:34
--- NOTE | 2022-02-18 16:03 | Progress Note ---
Assessment and Plan Assessment and plan: Advance Directives: Yes (Full code) VTE prophylaxis?: Chemical Plan of care discussed with patient/family: Yes - Patient Problems --Acetaminophen overdose Acetaminophen levels are within range at 11.0 Check level today Patient is depressed and has suicidal intentions Intentional overdose on Acetaminophen and lisinopril. N- Acetylcysteine protocol started -Poison control was contacted by ER physician LFTs are normal No hepatic injury at this point IV fluids consult mental health consult --Intentional drug overdose IV fluids and N-acetylcysteine antidote as per protocol . Pharmacy informed 1013 status --Suicidal attempt Mental health and psych consult --Severe depression; Management per psych/pending evaluation --Low-grade fever; T-max 100 F No evidence of infectious process, WBC normal range Urine analysis negative for UTI Closely monitor --Sinus tachycardia on admission; Improved heart rate today heart rate 95-114 Probably due to low-grade fever, stress related Closely monitor/EKG sinus tachycardia --Hypertension; Metoprolol 12.5 mg p.o. twice daily Hydralazine IV as needed for blood pressure more than 150/90 --1013 status/suicidal watch Follow psych eval and recommendations --DVT prophylaxis On heparin and GI prophylaxis --Advance care planning Disease education conducted care plan discussed diagnosis discussed and prognosis discussed. Patient acknowledged understanding with care plan. +30 minutes. 02/15/2022; patient's Tylenol levels within range Patient received 2 doses of N-acetylcysteine Tylenol level is 11.2[range 10.0-30.0] Patient is 1013 status Pending psych evaluation Closely monitor the patient and adjust the management as needed 02/16; continue current management 02/17/2022; patient is medically cleared for discharge. Disposition per psych team 02/18/2022; patient is medically cleared for discharge Pending psych discharge planning History Interval history: I have seen and examined the patient at the bedside Patient feels better denies any depression or depressive thoughts Denies any suicidal thoughts ideation or plans Anxious to go home Patient's vital signs are stable Patient is medically stable to be discharged from the hospital Disposition per psych Hospitalist Physical - Constitutional Vitals: Temp Pulse Resp BP Pulse Ox 98.4 F 89 16 126/59 96 02/18/22 10:06 02/18/22 10:09 02/18/22 10:06 02/18/22 10:09 02/18/22 10:06 General appearance: Present: no acute distress, well-nourished - EENT Eyes: Present: PERRL, EOM intact - Neck Neck: Present: supple, normal ROM - Respiratory Respiratory effort: normal Respiratory: bilateral: diminished, negative: rales, rhonchi, wheezing - Cardiovascular Rhythm: regular Heart Sounds: Present: S1 & S2 - Extremities Extremities: no ischemia, No edema - Abdominal General gastrointestinal: soft, non-tender, non-distended, normal bowel sounds - Integumentary Integumentary: Present: clear, warm - Psychiatric Psychiatric: appropriate mood/affect, cooperative - Neurologic Neurologic: CNII-XII intact, moves all extremities Results - Labs CBC & Chem 7: 02/15/22 04:48 02/16/22 09:40 Labs: Laboratory Last Values WBC 6.6 K/mm3 (4.5-11.0) 02/15/22 04:48 RBC 4.26 M/mm3 (3.65-5.03) 02/15/22 04:48 Hgb 11.2 gm/dl (10.1-14.3) 02/15/22 04:48 Hct 33.3 % (30.3-42.9) 02/15/22 04:48 MCV 78 fl (79-97) L 02/15/22 04:48 MCH 26 pg (28-32) L 02/15/22 04:48 MCHC 34 % (30-34) 02/15/22 04:48 RDW 13.7 % (13.2-15.2) 02/15/22 04:48 Plt Count 533 K/mm3 (140-440) H 02/15/22 04:48 Lymph % (Auto) 17.0 % (13.4-35.0) 02/15/22 04:48 [place] % (Auto) 10.3 % (0.0-7.3) H 02/15/22 04:48 Eos % (Auto) 3.0 % (0.0-4.3) 02/15/22 04:48 Baso % (Auto) 0.8 % (0.0-1.8) 02/15/22 04:48 Lymph # (Auto) 1.1 K/mm3 (1.2-5.4) L 02/15/22 04:48 [place] # (Auto) 0.7 K/mm3 (0.0-0.8) 02/15/22 04:48 Eos # (Auto) 0.2 K/mm3 (0.0-0.4) 02/15/22 04:48 Baso # (Auto) 0.1 K/mm3 (0.0-0.1) 02/15/22 04:48 Seg Neutrophils % 68.9 % (40.0-70.0) 02/15/22 04:48 Seg Neutrophils # 4.5 K/mm3 (1.8-7.7) 02/15/22 04:48 PT 15.1 Sec. (12.2-14.9) H 02/14/22 15:52 INR 1.07 (0.87-1.13) 02/14/22 15:52 APTT 28.9 Sec. (24.2-36.6) 02/14/22 15:52 Sodium 140 mmol/L (137-145) 02/16/22 09:40 Potassium 3.4 mmol/L (3.6-5.0) L 02/16/22 09:40 Chloride 106.5 mmol/L (98-107) 02/16/22 09:40 Carbon Dioxide 23 mmol/L (22-30) 02/16/22 09:40 Anion Gap 14 mmol/L 02/16/22 09:40 BUN 10 mg/dL (7-17) 02/16/22 09:40 Creatinine 0.5 mg/dL (0.6-1.2) L 02/16/22 09:40 Estimated GFR > 60 ml/min 02/16/22 09:40 BUN/Creatinine Ratio 20 % 02/16/22 09:40 Glucose 179 mg/dL (65-100) H 02/16/22 09:40 Calcium 8.6 mg/dL (8.4-10.2) 02/16/22 09:40 Total Bilirubin 3.50 mg/dL (0.1-1.2) H 02/16/22 09:40 AST 15 units/L (5-40) 02/16/22 09:40 ALT 16 units/L (7-56) 02/16/22 09:40 Alkaline Phosphatase 49 units/L (35-129) 02/16/22 09:40 Total Protein 6.3 g/dL (6.3-8.2) 02/16/22 09:40 Albumin 3.6 g/dL (3.9-5) L 02/16/22 09:40 Albumin/Globulin Ratio 1.3 % 02/16/22 09:40 HCG, Qual Negative (Negative) 02/14/22 14:51 Urine Color Straw (Yellow) 02/14/22 15:11 Urine Turbidity Clear (Clear) 02/14/22 15:11 Specific [place] (Man) 1.015 (1.003-1.030) 02/14/22 15:11 Ur Protein (Man) 1+ mg/dL (Negative) 02/14/22 15:11 Ur Ketones (Man) Negative (Negative) 02/14/22 15:11 Urine Bilirubin (Man) Negative (Negative) 02/14/22 15:11 Urine WBC (Auto) 1.0 /HPF (0.0-6.0) 02/14/22 15:11 Urine RBC (Auto) 1.0 /HPF (0.0-6.0) 02/14/22 15:11 U Epithel Cells (Auto) 1.0 /HPF (0-13.0) 02/14/22 15:11 Urine RBC (Manual) Negative (Negative) 02/14/22 15:11 Urine Mucus Few /HPF 02/14/22 15:11 Salicylates < 0.3 mg/dL (2.8-20.0) L 02/14/22 14:51 Urine Opiates Screen Negative 02/14/22 15:11 Urine Methadone Screen Negative 02/14/22 15:11 Acetaminophen 5.0 ug/mL (10.0-30.0) L 02/16/22 09:40 Ur Barbiturates Screen Negative 02/14/22 15:11 Ur Phencyclidine Scrn Negative 02/14/22 15:11 Ur Amphetamines Screen Negative 02/14/22 15:11 U Benzodiazepines Scrn Negative 02/14/22 15:11 Urine Cocaine Screen Negative 02/14/22 15:11 U Marijuana (THC) Screen Negative 02/14/22 15:11 Drugs of Abuse Note Disclamer 02/14/22 15:11 Plasma/Serum Alcohol < 0.01 % (0-0.07) 02/14/22 14:51 SARS-CoV-2 (PCR) Negative (Negative) 02/18/22 11:01 Flower/IV: Voiding Method Toilet Active Medications - Current Medications Current Medications: Generic Name Dose Route Start Last Admin Trade Name Freq PRN Reason Stop Dose Admin Acetaminophen 650 mg 02/16/22 16:36 02/17/22 17:35 Acetaminophen 325 Mg Tab PO 650 mg Q4H PRN Administration Pain, Mild (1-3) Famotidine 20 mg 02/17/22 22:00 02/18/22 10:09 Famotidine 20 Mg Tab PO 20 mg BID KATE Administration Hydralazine HCl 10 mg 02/16/22 14:00 02/17/22 12:22 Hydralazine 20 Mg/1 Ml Inj IV 10 mg Q4HR PRN Administration Hypertension Metoclopramide HCl 10 mg 02/14/22 21:12 Metoclopramide 10 Mg/2 Ml Inj IV Q6H PRN Nausea And Vomiting Metoprolol Tartrate 12.5 mg 02/16/22 10:00 02/18/22 10:09 Metoprolol Tartrate 25 Mg Tab PO 12.5 mg BID KATE Administration Morphine Sulfate 2 mg 02/14/22 16:10 Morphine 2 Mg/1 Ml Inj IV Q4H PRN Pain, Moderate (4-6) Ondansetron HCl 4 mg 02/14/22 16:10 Ondansetron 4 Mg/2 Ml Inj IV Q8H PRN Nausea And Vomiting Sertraline HCl 50 mg 02/18/22 10:00 02/18/22 10:09 Sertraline 50 Mg Tab PO 50 mg QDAY KATE Administration Sodium Chloride 10 ml 02/14/22 22:00 02/18/22 10:09 Sodium Chloride 0.9% 10 Ml Flush Syringe IV 10 ml BID KATE Administration Sodium Chloride 10 ml 02/14/22 16:10 02/15/22 00:54 Sodium Chloride 0.9% 10 Ml Flush Syringe IV 10 ml PRN PRN Administration LINE FLUSH Trazodone HCl 50 mg 02/16/22 22:00 02/17/22 22:19 Trazodone 50 Mg Tab PO 50 mg QHS KATE Administration
[2022-02-18] MEDS: traZODone 50 MG TAB PO SCH (22:18)
[2022-02-19] MEDS: SERTRALINE 50 MG TAB PO SCH (10:13)
[2022-02-19] MEDS: METOPROLOL TARTRATE 25 MG TAB PO SCH (10:13)
[2022-02-19] MEDS: FAMOTIDINE 20 MG TAB PO SCH (10:13)
--- NOTE | 2022-02-19 11:37 | Progress Note ---
Assessment and Plan Assessment and plan: VTE prophylaxis?: Chemical Plan of care discussed with patient/family: Yes - Patient Problems --Acetaminophen overdose Acetaminophen levels are within range at 11.0 Check level today Patient is depressed and has suicidal intentions Intentional overdose on Acetaminophen and lisinopril. N- Acetylcysteine protocol started -Poison control was contacted by ER physician LFTs are normal No hepatic injury at this point IV fluids consult mental health consult --Intentional drug overdose IV fluids and N-acetylcysteine antidote as per protocol . Pharmacy informed 1013 status --Suicidal attempt Mental health and psych consult --Severe depression; Management per psych/pending evaluation --Low-grade fever; T-max 100 F No evidence of infectious process, WBC normal range Urine analysis negative for UTI Closely monitor --Sinus tachycardia on admission; Improved heart rate today heart rate 95-114 Probably due to low-grade fever, stress related Closely monitor/EKG sinus tachycardia --Hypertension; Metoprolol 12.5 mg p.o. twice daily Hydralazine IV as needed for blood pressure more than 150/90 --1013 status/suicidal watch Follow psych eval and recommendations --DVT prophylaxis On heparin and GI prophylaxis --Advance care planning Disease education conducted care plan discussed diagnosis discussed and prognosis discussed. Patient acknowledged understanding with care plan. +30 minutes. 02/15/2022; patient's Tylenol levels within range Patient received 2 doses of N-acetylcysteine Tylenol level is 11.2[range 10.0-30.0] Patient is 1013 status Pending psych evaluation Closely monitor the patient and adjust the management as needed 02/16; continue current management 02/17/2022; patient is medically cleared for discharge. Disposition per psych team 02/18/2022; patient is medically cleared for discharge Pending psych discharge planning 02/19/2022; patient is medically cleared for discharge. Hospitalist Physical - Constitutional Vitals: Temp Pulse Resp BP Pulse Ox 98.7 F 68 18 134/71 98 02/19/22 08:45 02/19/22 10:13 02/19/22 08:45 02/19/22 10:13 02/19/22 08:45 General appearance: Present: no acute distress, well-nourished Results - Labs CBC & Chem 7: 02/15/22 04:48 02/16/22 09:40 Labs: Laboratory Last Values WBC 6.6 K/mm3 (4.5-11.0) 02/15/22 04:48 RBC 4.26 M/mm3 (3.65-5.03) 02/15/22 04:48 Hgb 11.2 gm/dl (10.1-14.3) 02/15/22 04:48 Hct 33.3 % (30.3-42.9) 02/15/22 04:48 MCV 78 fl (79-97) L 02/15/22 04:48 MCH 26 pg (28-32) L 02/15/22 04:48 MCHC 34 % (30-34) 02/15/22 04:48 RDW 13.7 % (13.2-15.2) 02/15/22 04:48 Plt Count 533 K/mm3 (140-440) H 02/15/22 04:48 Lymph % (Auto) 17.0 % (13.4-35.0) 02/15/22 04:48 [place] % (Auto) 10.3 % (0.0-7.3) H 02/15/22 04:48 Eos % (Auto) 3.0 % (0.0-4.3) 02/15/22 04:48 Baso % (Auto) 0.8 % (0.0-1.8) 02/15/22 04:48 Lymph # (Auto) 1.1 K/mm3 (1.2-5.4) L 02/15/22 04:48 [place] # (Auto) 0.7 K/mm3 (0.0-0.8) 02/15/22 04:48 Eos # (Auto) 0.2 K/mm3 (0.0-0.4) 02/15/22 04:48 Baso # (Auto) 0.1 K/mm3 (0.0-0.1) 02/15/22 04:48 Seg Neutrophils % 68.9 % (40.0-70.0) 02/15/22 04:48 Seg Neutrophils # 4.5 K/mm3 (1.8-7.7) 02/15/22 04:48 PT 15.1 Sec. (12.2-14.9) H 02/14/22 15:52 INR 1.07 (0.87-1.13) 02/14/22 15:52 APTT 28.9 Sec. (24.2-36.6) 02/14/22 15:52 Sodium 140 mmol/L (137-145) 02/16/22 09:40 Potassium 3.4 mmol/L (3.6-5.0) L 02/16/22 09:40 Chloride 106.5 mmol/L (98-107) 02/16/22 09:40 Carbon Dioxide 23 mmol/L (22-30) 02/16/22 09:40 Anion Gap 14 mmol/L 02/16/22 09:40 BUN 10 mg/dL (7-17) 02/16/22 09:40 Creatinine 0.5 mg/dL (0.6-1.2) L 02/16/22 09:40 Estimated GFR > 60 ml/min 02/16/22 09:40 BUN/Creatinine Ratio 20 % 02/16/22 09:40 Glucose 179 mg/dL (65-100) H 02/16/22 09:40 Calcium 8.6 mg/dL (8.4-10.2) 02/16/22 09:40 Total Bilirubin 3.50 mg/dL (0.1-1.2) H 02/16/22 09:40 AST 15 units/L (5-40) 02/16/22 09:40 ALT 16 units/L (7-56) 02/16/22 09:40 Alkaline Phosphatase 49 units/L (35-129) 02/16/22 09:40 Total Protein 6.3 g/dL (6.3-8.2) 02/16/22 09:40 Albumin 3.6 g/dL (3.9-5) L 02/16/22 09:40 Albumin/Globulin Ratio 1.3 % 02/16/22 09:40 HCG, Qual Negative (Negative) 02/14/22 14:51 Urine Color Straw (Yellow) 02/14/22 15:11 Urine Turbidity Clear (Clear) 02/14/22 15:11 Specific [place] (Man) 1.015 (1.003-1.030) 02/14/22 15:11 Ur Protein (Man) 1+ mg/dL (Negative) 02/14/22 15:11 Ur Ketones (Man) Negative (Negative) 02/14/22 15:11 Urine Bilirubin (Man) Negative (Negative) 02/14/22 15:11 Urine WBC (Auto) 1.0 /HPF (0.0-6.0) 02/14/22 15:11 Urine RBC (Auto) 1.0 /HPF (0.0-6.0) 02/14/22 15:11 U Epithel Cells (Auto) 1.0 /HPF (0-13.0) 02/14/22 15:11 Urine RBC (Manual) Negative (Negative) 02/14/22 15:11 Urine Mucus Few /HPF 02/14/22 15:11 Salicylates < 0.3 mg/dL (2.8-20.0) L 02/14/22 14:51 Urine Opiates Screen Negative 02/14/22 15:11 Urine Methadone Screen Negative 02/14/22 15:11 Acetaminophen 5.0 ug/mL (10.0-30.0) L 02/16/22 09:40 Ur Barbiturates Screen Negative 02/14/22 15:11 Ur Phencyclidine Scrn Negative 02/14/22 15:11 Ur Amphetamines Screen Negative 02/14/22 15:11 U Benzodiazepines Scrn Negative 02/14/22 15:11 Urine Cocaine Screen Negative 02/14/22 15:11 U Marijuana (THC) Screen Negative 02/14/22 15:11 Drugs of Abuse Note Disclamer 02/14/22 15:11 Plasma/Serum Alcohol < 0.01 % (0-0.07) 02/14/22 14:51 SARS-CoV-2 (PCR) Negative (Negative) 02/18/22 11:01 Flower/IV: Voiding Method Toilet Active Medications - Current Medications Current Medications: Generic Name Dose Route Start Last Admin Trade Name Freq PRN Reason Stop Dose Admin Acetaminophen 650 mg 02/16/22 16:36 02/17/22 17:35 Acetaminophen 325 Mg Tab PO 650 mg Q4H PRN Administration Pain, Mild (1-3) Famotidine 20 mg 02/17/22 22:00 02/19/22 10:13 Famotidine 20 Mg Tab PO 20 mg BID KATE Administration Hydralazine HCl 10 mg 02/16/22 14:00 02/17/22 12:22 Hydralazine 20 Mg/1 Ml Inj IV 10 mg Q4HR PRN Administration Hypertension Metoclopramide HCl 10 mg 02/14/22 21:12 Metoclopramide 10 Mg/2 Ml Inj IV Q6H PRN Nausea And Vomiting Metoprolol Tartrate 12.5 mg 02/16/22 10:00 02/19/22 10:13 Metoprolol Tartrate 25 Mg Tab PO 12.5 mg BID KATE Administration Morphine Sulfate 2 mg 02/14/22 16:10 Morphine 2 Mg/1 Ml Inj IV Q4H PRN Pain, Moderate (4-6) Ondansetron HCl 4 mg 02/14/22 16:10 Ondansetron 4 Mg/2 Ml Inj IV Q8H PRN Nausea And Vomiting Sertraline HCl 50 mg 02/18/22 10:00 02/19/22 10:13 Sertraline 50 Mg Tab PO 50 mg QDAY KATE Administration Sodium Chloride 10 ml 02/14/22 22:00 02/19/22 10:14 Sodium Chloride 0.9% 10 Ml Flush Syringe IV 10 ml BID KATE Administration Sodium Chloride 10 ml 02/14/22 16:10 02/15/22 00:54 Sodium Chloride 0.9% 10 Ml Flush Syringe IV 10 ml PRN PRN Administration LINE FLUSH Trazodone HCl 50 mg 02/16/22 22:00 02/18/22 22:18 Trazodone 50 Mg Tab PO 50 mg QHS KATE Administration
[2022-02-19 12:34] VITALS: BP 136/82
--- NOTE | 2022-02-19 20:40 | Discharge Summary ---
Providers - Providers Date of Admission: 02/14/22 16:10 Date of discharge: 02/19/22 Attending physician: RIP WEISS 02/14/22 21:12 Consult to Physician [CONS] Routine Comment: Consulting Provider: DRAKE CARUSO Physician Instructions: Reason For Exam: Tylenol/lisinopril overdose, suicidal attempt 02/14/22 21:17 Consult to Mental Health [CONS] Routine Reason For Exam: Tylenol/lisinopril overdose, suicidal attempt Primary care physician: TIA OLIVEIRA Hospitalization Reason for admission: Intentional acetaminophen overdose/suicidal attempt Condition: Fair Hospital course: -39-year-old female patient with significant past medical history of hypertension was admitted through emergency room with Tylenol and lisinopril overdose patient intentionally overdosed approximately 20 Tylenol PMs 500 mg each with approximately 10 lisinopril of 20 mg each patient complains of severe depression and overwhelming situation. Patient was admitted to the hospital, poison control was contacted and patient received N-acetylcysteine prior and Tylenol levels and liver function tests are closely monitored. Patient was evaluated by psychiatrist in consultation and placed placed the patient on 1013 status, managed with psych medications and counseling. Patient's Tylenol and LFTs improved to normal range and patient was hemodynamically and clinically stable and medically cleared for discharge. Psych recommended inpatient psych placement, patient received discharged and transferred to [facility] for further evaluation and management. Patient is medically stable at discharge. Discharge diagnosis: -Acetaminophen overdose Acetaminophen levels are within range at 11.0 Patient received l. N- Acetylcysteinen LFTs are normal No hepatic injury at this point Patient's symptoms resolved --Intentional drug overdose IV fluids and N-acetylcysteine antidote as per protocol . 1013 status, psych following --Suicidal attempt Mental health and psych consult --Severe depression; Management per psych/pending evaluation --Low-grade fever; T-max 100 F No evidence of infectious process, WBC normal range Urine analysis negative for UTI Closely monitor --Sinus tachycardia on admission; resolved Improved heart rate today heart rate 95-114 Probably due to low-grade fever, stress related Closely monitor/EKG sinus tachycardia --Hypertension; Metoprolol 12.5 mg p.o. twice daily Hydralazine IV as needed for blood pressure more than 150/90 --1013 status/suicidal watch Follow psych eval and recommendations --DVT prophylaxis On heparin and GI prophylaxis --Advance care planning Disease education conducted care plan discussed diagnosis discussed and prognosis discussed. Patient acknowledged understanding with care plan. +30 minutes. Patient is medically stable for discharge Psych plan discharge and transfer the patient to [facility] hospital. Stable at discharge [facility] Final Discharge Diagnosis (Prints w/discharge instructions): Acetaminophen overdose. Intentional drug overdose. Suicidal attempt. Severe depression. Low-grade fever resolved. Sinus tachycardia resolved. Hypertension. 1013 status/suicidal watch Time spent for discharge: 35 min clinical patient Core Measure Documentation - Palliative Care Palliative Care/ Comfort Measures: Not Applicable - Core Measures Any of the following diagnoses?: none Exam - Constitutional Vitals: Temp Pulse Resp BP Pulse Ox 98.2 F 76 18 136/82 98 02/19/22 12:33 02/19/22 12:33 02/19/22 12:33 02/19/22 12:33 02/19/22 12:33 General appearance: Present: no acute distress, well-nourished - EENT Eyes: Present: PERRL - Neck Neck: Present: supple, normal ROM - Respiratory Respiratory effort: normal Respiratory: bilateral: diminished, negative: rales, rhonchi, wheezing - Cardiovascular Rhythm: regular Heart Sounds: Present: S1 & S2 - Extremities Extremities: no ischemia, No edema - Abdominal General gastrointestinal: Present: soft, non-tender, non-distended, normal bowel sounds - Integumentary Integumentary: Present: clear, warm - Musculoskeletal Musculoskeletal: strength equal bilaterally - Psychiatric Psychiatric: appropriate mood/affect, cooperative, depressed - Neurologic Neurologic: moves all extremities Plan Activity: advance as tolerated Diet: regular Additional Instructions: Rest of management per inpatient psychiatrist Follow up with: TIA OLIVEIRA MD [Primary Care Provider] - 7 Days
== END 2022-02-19 19:50 | DRG 918 ==
LOC: ED 13:04 → 3A 16:10 → OBSVTOIN 16:10 → 3A 23:30
PROVIDERS: ADMIT Internal Medicine; ATTEND Internal Medicine
DX: T39.1X2A Poisoning by 4-Aminophenol derivatives, intentional self-harm, initial encounter (principal); Z20.822 Contact with and (suspected) exposure to COVID-19; T46.4X2A Poisoning by angiotensin-converting-enzyme inhibitors, intentional self-harm, initial encounter; I10 Essential (primary) hypertension; G51.0 Bell's palsy; E28.2 Polycystic ovarian syndrome; Z86.018 Personal history of other benign neoplasm; Z91.048 Other nonmedicinal substance allergy status; Z98.51 Tubal ligation status; Z82.49 Family history of ischemic heart disease and other diseases of the circulatory system; F32.A Depression, unspecified; Y92.89 Other specified places as the place of occurrence of the external cause; Z91.040 Latex allergy status
CPT/HCPCS: 36415; 80053; 80307; 80320; 81001; 84450; 84460; 84703; 85025; 85610; 85730; 93005; 99285; G0378; J3490; J7060; G0480; J0132; J0360; J7030; J7042; J7070; U0003